=== PATIENT | male | born 1965 | race Two or more races ===

== ENCOUNTER → 2020-10-03 | Outpatient (CLI) | payer BC ==
--- NOTE | 2020-10-03 10:03 | RAD ---
Noncontrast CT scan of the chest without comparison for abnormal chest x-ray, productive cough for 2 weeks. TECHNIQUE: Contiguous axial CT images are obtained through the chest. Sagittal and coronal reformatio ns are evaluated. FINDINGS: Heart size is normal. No suspicious mediastinal, axillary, or hilar lymphadenopathy. Mild m ultifocal coronary artery calcifications. No gross abnormalities of the visualized upper abdominal or joshua, though evaluation is limited by lack of IV contrast. Multilevel degenerative disc disease throu ghout the thoracic spine. Benign granulomatous calcifications in the lungs. No suspicious lung nodule s or masses. No areas of active consolidation or infiltrate. Central airways are patent. IMPRESSION: 1. Changes of antecedent granulomatous disease in the lungs, with no acute cardiopulmonary abnormalit y identified. 2. Coronary artery disease. PQRS Compliance Statement: One or more of the following individualized dose reduction techniques were utilized for this examinat ion: 1. Automated exposure control 2. Adjustment of the mA and/or kV according to patient size 3. Use of iterative reconstruction technique Electronically signed by: Kalin Pearce MD (10/03/2020 10:01 AM) [id number]
== END ==
LOC: CT 08:20
PROVIDERS: ATTEND Nurse Practitioner Adult Health
DX: R05 Cough (principal); J98.4 Other disorders of lung; I25.10 Atherosclerotic heart disease of native coronary artery without angina pectoris
CPT/HCPCS: 71250